=== PATIENT | male | born 1985 | race Caucasian/White ===

== ENCOUNTER 2017-01-26 19:04 | Emergency (ER) | payer BC, OTHER ==
[2017-01-26 19:46] VITALS: BP 148/110; PULSE 110; RESP 16; TEMP 98.2; O2SAT 94
[2017-01-26] MEDS ORDERED: IBUPROFEN 600 MG TAB PO ONE (20:44)
--- NOTE | 2017-01-26 21:07 | EDPHY ---
H & P Stated Complaint: L knee injury - Personal History Current Tetanus/Diphtheria Vaccine: Unsure Current Tetanus Diphtheria and Acellular Pertussis (TDAP): Unsure - Medical/Surgical History Hx Asthma: No Hx Chronic Respiratory Disease: No Hx Diabetes: No Hx Cardiac Disease: No Hx Renal Disease: No Hx Cirrhosis: No Hx Alcoholism: No Hx HIV/AIDS: No Hx Splenectomy or Spleen Trauma: No Other PMH: c5 fusion, R knee surgery, - Social History Smoking Status: Never smoked HPI/ROS: Chief complaint: Left knee injury History of present illness: This is a 31-year-old male who presents to the emergency department for a left knee injury. Earlier today a cinder block fell off a dumpster landing onto his left knee. Since then he has had pain and swelling that has been slowly worsening. It is making it difficult to ambulate. He denies open wounds. He denies paresthesias or coolness in the leg. He denies other trauma. (Augusto Liu) - Physical Exam Exam: General: Alert, nontoxic Skin: Contusion around the left knee. No open wounds. Musculoskeletal: Tenderness around the anterior left knee. He is flexing extending it well. The knee joint does appear stable. The rest the lower leg is nontender. Vascular: DP and PT pulses 2+. Neurologic: Sensation intact throughout the left lower extremity. (Augusto Liu) Constitutional: Initial Vital Signs Temperature (C) 36.8 C 01/26/17 19:43 Heart Rate 110 H 01/26/17 19:43 Respiratory Rate 16 01/26/17 19:43 Blood Pressure 148/110 H 01/26/17 19:43 O2 Sat (%) 94 01/26/17 19:43 O2 Delivery Mode Room Air Allergies/Adverse Reactions: No Known Allergies Allergy (Unverified 01/26/17 19:43) Home Medications: Medication Instructions Recorded NK [No Known Home Meds] 01/26/17 Medical Decision Making ED Course/Re-evaluation: Patient seen under the supervision of my secondary supervising physician Dr. Rosalind Hurt. Patient presents to the emergency department for a left knee injury. The leg is neurovascularly intact. X-rays negative. Patient is placed in an Obdulio wrap. He is placed on crutches. Home care is discussed. He is referred to Orthopedics for recheck. Return precautions are given. Patient voiced understanding and agreement with plan. (Augusto Liu) The patient was evaluated and managed by the physician assistant chief train dispatcher. I have reviewed this chart and I agree with the findings and plan of care as documented , as indicated by my signature. I am the secondary supervising physician. ( Rosalind Hurt) Differential Diagnosis: Included but not limited to contusion, sprain or strain, meniscal injury, bony fracture (Augusto Liu) - Data Points Medications Given: Discontinued Medications Ibuprofen (Motrin) 600 mg PO EDNOW ONE Stop: 01/26/17 20:45 Last Admin: 01/26/17 20:48 Dose: 600 mg Departure - Departure Disposition: Home, Routine, Self-Care Clinical Impression: Knee contusion Condition: Good Instructions: Knee Pain (ED) Additional Instructions: Please arrange a follow-up appointment with orthopedics for continued evaluation and care Use ibuprofen 600 mg 3 times a day for the next 2-3 days for pain and swelling Ice the injury, 20 minutes on at least 3 times daily for the next 3 days Use Obdulio wrap as discussed for the next few days Elevate the leg as much as possible for the next few days Use crutches and remain nonweightbearing until injuries heal If symptoms worsen or new symptoms develop return to the emergency room for recheck Referrals: ANETTE NAYLOR [Primary Care Provider] - As per Instructions Scott Aguilera MD [Medical Doctor] - As per Instructions
== END 2017-01-26 21:19 | disposition home or self-care (01) ==
DX: S80.02XA Contusion of left knee, initial encounter (principal); W20.8XXA Other cause of strike by thrown, projected or falling object, initial encounter